=== PATIENT | male | born 1980 | race African-American/Black ===

== ENCOUNTER 2020-08-25 13:06 | Observation (INO) | payer SELFPAY ==
[2020-08-25] VITALS (8 sets, daily range): BP systolic 137–160; BP diastolic 94–105; PULSE 61–83; RESP 16–20; TEMP 36.1–36.9; O2SAT 97–100; BMI 26.4; BMI 27.9
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
--- NOTE | ~2020-08-25 | CT_ITS ---
EXAMINATION: CT brain wo con EXAM DATE: 08/25/2020 14:04 INDICATION: Syncope. Dizziness. TECHNIQUE: Spiral CT of the head was performed without contrast. Axial, coronal and sagittal images were reviewed. The dose-length product (DLP) for this examination was 605.33 mGy-cm. The exposure w as tailored according to patient size, and iterative reconstruction (ASIR) was used as additional dos e reduction technique. There is no prior study for comparison. FINDINGS: There is no acute intraparenchymal hemorrhage. No evidence of intraparenchymal brain mass lesion. No evidence of acute infarction. There is no mass effect or midline shift. The ventricles are normal in size. There are no extra-axial collections. There are no acute calvarial fractures. T he orbits are unremarkable. Soft tissue is unremarkable. The visualized sinuses and mastoid air deandre ls are well aerated. IMPRESSION: 1. No acute intracranial findings. Reviewed, dictated and finalized at location B.
--- NOTE | ~2020-08-25 | US_ITS ---
EXAMINATION: US carotid duplex BI DATE: 08/26/2020 09:20 INDICATION: Syncope. TECHNIQUE: Grayscale, color Doppler, and pulsed Doppler images of the cervical carotid arteries were obtained. The degree of vessel stenosis is placed in one of the following categories: normal, <50%, 5 0-69%, >=70% but less than near-occlusion, near-occlusion, or total occlusion. Note that percent sten osis relative to normal distal artery lumen diameter is indirectly measured from velocity measurement s as described by Don, et al. Radiology 2003; 229:340-346. COMPARISON: None. FINDINGS: RIGHT: The right common carotid artery (CCA) peak systolic velocity (PSV) is 106 cm/s. The right internal ca rotid artery (ICA) PSV is 63 cm/s. The right ICA end-diastolic velocity (EDV) is 30 cm/s. The right I CA/CCA PSV ratio is 0.6. Grayscale and color Doppler images yield an estimate of <50% diameter reduct ion from plaque in the ICA. There is antegrade flow in the right vertebral artery. LEFT: The left CCA PSV is 98 cm/s. The left ICA PSV is 82 cm/s. The left ICA EDV is 40 cm/s. The left ICA/C CA PSV ratio is 0.8. Grayscale and color Doppler images yield an estimate of <50% diameter reduction from plaque in the ICA. There is antegrade flow in the left vertebral artery. IMPRESSION: 1. <50% stenosis in the right internal carotid artery. 2. <50% stenosis in the left internal carotid artery. Reviewed, dictated and finalized at location A.
--- NOTE | 2020-08-25 13:45 | ECG_ITS ---
Measurements Intervals [place] Rate: 62 P: 54 MA: 136 QRS: 51 QRSD: 94 T: 40 QT: 406 QTc: 413 Interpretive Statements SINUS RHYTHM BASELINE ARTIFACT- II, III, AVR, AVF, V2-V6 NORMAL ECG Electronically Signed On 08-25-2020 15:39:27 CDT by Shimon Seo D.O.
[2020-08-25 14:01] LABS: Basophils Absolute Auto 0.1 K/mm3 (0.0-0.1); Basophils Percent Auto 0.5 % (0.2-1.2); Eosinophils Absolute Auto 0.1 K/mm3 (0-0.3); Hematocrit 49.1 % (42.0-52.0); Immature Granulocyte Absolute 0.05 K/mm3 (0.00-0.031); Immature Granulocyte Percent A 0.4 % (0-0.5); Lymphocytes Absolute Auto 3.87 K/mm3 (0.9-3.2); Lymphocytes Percent Auto 32.1 % (18.3-44.2); Mean Corpuscular HGB Conc 32.6 g/dl (32-36); Mean Corpuscular Hemoglobin 30.5 pg (26-34); Mean Corpuscular Volume 93.5 fl (80-100); Mean Platelet Volume 9.3 fl (7.4-10.4); Monocytes Absolute Auto 0.9 K/mm3 (0.1-0.6); Monocytes Percent Auto 7.2 % (2.6-8.5); Neutrophils Absolute Auto 7.1 K/mm3 (1.3-6.7); Neutrophils Percent Auto 58.8 % (45.5-73.1); Platelet Count Result 254 k/mm3 (150-375); Red Blood Count 5.25 M/mm3 (4.6-6.20); Red Cell Distribution Width 14.6 % (11.5-14.5); White Blood Count 12.1 K/mm3 (4.5-10.0)
[2020-08-25 14:14] LABS: Anion Gap 9 mmol/L (8-16); Blood Urea Nitrogen 15 mg/dL (9-20); Calcium 10.1 mg/dL (8.4-10.2); Carbon Dioxide 27 mmol/L (22-30); Chloride 104 mmol/L (98-107); Estimated CRCL calculation 81 ml/min; Estimated Glomerular Filt Rate > 60; Glucose 99 mg/dL (75-110); Potassium 4.5 mmol/L (3.4-5.0); Sodium 140 mmol/L (137-145)
[2020-08-25 14:15] LABS: INR 0.9; Prothrombin Time 12.2 Seconds (11.1-14.7)
[2020-08-25 14:16] LABS: Partial Thromboplastin Time 32.8 SECONDS (22.3-36.8)
[2020-08-25 14:26] LABS: Troponin I < 0.012 ng/mL (0.000-0.034)
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
[2020-08-25 16:53] LABS: Troponin I < 0.012 ng/mL (0.000-0.034)
[2020-08-25 20:51] LABS: Troponin I < 0.012 ng/mL (0.000-0.034)
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
[2020-08-25] MEDS: THIAMINE HCL 200 MG/2 ML VIAL 100 MG IV PUSH (23:17)
[2020-08-25] MEDS: chlordiazePOXIDE (*CRX) 25 MG CAPSULE PO (23:17)
[2020-08-26] VITALS (7 sets, daily range): BP systolic 135–159; BP diastolic 76–99; PULSE 54–88; RESP 16; TEMP 36.1; O2SAT 98–100
[2020-08-26 00:48] LABS: Cholesterol 191 mg/dL (0-200); HDL Direct 37 mg/dL; Triglycerides 223 mg/dL (<150)
[2020-08-26 00:59] LABS: LDL Cholesterol Direct 92 mg/dL
[2020-08-26 05:54] LABS: Hematocrit 45.7 % (42.0-52.0); Mean Corpuscular HGB Conc 32.8 g/dl (32-36); Mean Corpuscular Hemoglobin 30.5 pg (26-34); Mean Corpuscular Volume 93.1 fl (80-100); Mean Platelet Volume 9.5 fl (7.4-10.4); Platelet Count Result 246 k/mm3 (150-375); Red Blood Count 4.91 M/mm3 (4.6-6.20); Red Cell Distribution Width 14.4 % (11.5-14.5); White Blood Count 11.4 K/mm3 (4.5-10.0)
[2020-08-26 06:07] LABS: Alanine Aminotransferase 22 U/L (4-50); Albumin Level 3.8 g/dL (3.5-5.1); Alkaline Phosphatase 59 U/L (38-126); Anion Gap 6 mmol/L (8-16); Aspartate Amino Transferase 26 U/L (17-59); Bilirubin,Total 0.2 mg/dL (0.2-1.3); Blood Urea Nitrogen 19 mg/dL (9-20); Calcium 9.1 mg/dL (8.4-10.2); Carbon Dioxide 24 mmol/L (22-30); Chloride 108 mmol/L (98-107); Estimated CRCL calculation 88 ml/min; Estimated Glomerular Filt Rate > 60; Glucose 108 mg/dL (75-110); Magnesium 1.8 mg/dL (1.6-2.3); Potassium 4.2 mmol/L (3.4-5.0); Sodium 138 mmol/L (137-145)
[2020-08-26] MEDS: THIAMINE HCL 100 MG TABLET PO (10:08)
[2020-08-26] MEDS: FOLIC ACID 1 MG TABLET PO (10:08)
[2020-08-26] MEDS: THERAPEUTIC MULTIVITAMINS/MINERALS TAB (*BKC) 1 TABLET PO (10:08)
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
--- NOTE | 2020-08-26 15:54 | PM.DS ---
DS: Admitting Diagnosis Admitting Diagnosis Admitting Diagnosis: pre-syncopal episodes DS: Discharge Diagnosis Discharge Diagnosis (1) Near syncope: Code(s): R55 - Syncope and collapse Status: Acute (2) Alcohol abuse: Code(s): F10.10 - Alcohol abuse, uncomplicated Status: Acute (3) Tobacco dependence: Code(s): F17.200 - Nicotine dependence, unspecified, uncomplicated Status: Acute (4) Pre-hypertension: Code(s): R03.0 - Elevated blood-pressure reading, without diagnosis of hypertension Status: Acute (5) Cannabis use with cannabis-induced disorder: Code(s): F12.99 - Cannabis use, unspecified with unspecified cannabis-induced disorder Status: Acute (6) Complicated grief: Code(s): F43.21 - Adjustment disorder with depressed mood Status: Acute DS: Summary Hospital Course Reason for hospitalization: presyncope Hospital Course: This 40-year-old gentleman who has not seen a primary physician for a while has been drinking about 7 shots of cognac daily. This began over the last few years when he lost 11 friends and family to cancer and other illnesses. He admits to anxiety and depressed mood and continue grieving over his lost Loved ones. 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 He is in a stable long-term relationship. He smokes cigarettes and sometimes uses cannabis to calm his nerves. He drinks red bull in the morning to help him focus while driving and also at night to help him stable weight so he can keep drinking. He starts drinking and between 5 and 8:00 p.m. every night when he gets off work and continues drinking until 11:00 p.m. to 12:00 a.m. when he goes to bed. With the presyncopal episodes he had a funny sensation in his chest. Not pain. Not palpitations. He had 2 brief episodes while in the hospital but his telemetry during the episodes showed sinus rhythm. Labs electrocardiogram echocardiogram and chest x-ray were unremarkable during hospitalization. triglycerides were slightly high at 223. Cholesterol was 191. LDL was 92. HDL was 37. At this point he wishes to seek help for his alcohol dependence. He also realizes that he needs counseling for his prolonged complicated grief. He wishes to go home today but will call [facility] on [place] and will consider in the meantime whether he wishes inpatient or outpatient treatment. Status at Discharge Functional status at discharge: independent ambulation Overall status at discharge: patient is back to baseline Time Spent with Patient Time attestation: Total time spent providing and/or coordinating discharge services: Time spent: Greater than 30 minutes Exam Narrative: Exam Narrative: HEENT: PERRL, sclerae nonicteric, pharyngeal mucosa pink and intact NECK: No JVD, adenopathy, or thyromegaly CHEST: Clear to auscultation. Normal effort. HEART: NL S1/S2, regular, no murmur ABDOMEN: BS+, soft, nontender, no mass, no bruits EXTREMITIES: No cyanosis, edema, or clubbing NEUROLOGIC: CN intact and symmetric to inspection. MUSCULOSKELETAL: Tone and strength symmetric. PSYCH: Alert. Oriented to person, place, and time. DS: Data Data Completed and Pending Labs on day of discharge: Labs from last 24 hours 08/26/20 08/26/20 08/25/20 05:22 05:22 20:17 WBC 11.4 H RBC 4.91 Hgb 15.0 Hct 45.7 MCV 93.1 MCH 30.5 MCHC 32.8 RDW 14.4 Plt Count 246 MPV 9.5 Sodium 138 Potassium 4.2 Chloride 108 H Carbon Dioxide 24 Anion Gap 6 L BUN 19 Creatinine 1.20 Estim Creat Clear Calc 88 Estimated GFR > 60 Glucose 108 Calcium 9.1 Magnesium 1.8 Total Bilirubin 0.2 AST 26 ALT 22 Alkaline Phosphatase 59 Troponin I Total Protein 7.0 Albumin 3.8 Triglycerides 223 H Cholesterol 191 LDL Cholesterol Direct 92 HDL Direct 37 08/25/20 08/25/20 20:17 16:10 WBC RBC
--- NOTE | 2020-08-26 21:57 | ECHO_ITS ---
Patient Info Name: [address] Young Age: 40 years : 1980 Gender: Male Ht: 76 in Wt: 229 lbs BSA: 2.37 m2 HR: 75 bpm Technical Quality: Good Exam Date: 08/26/2020 9:23 AM Exam Location: [facility] Pulmonary Patient Status: Outpatient Admit Date: 08/25/2020 Staff Ordering Physician: Maame Joyce PA-C Senior Talent Management Consultant: Matilda Gill RDCS Attending Provider: Malka Myles MD Referring Physician: Isiah HOFFMAN; Exam Type: CA echo doppler w bubble study Study Info Complete two-dimensional, color flow and Doppler transthoracic echocardiogram is performed with agitated saline. Contrast/Agitated Saline Contrast/Ag. Saline: Agitated Saline Amount: 8.00 ml Left Ventricle Left ventricular chamber dimension is normal. Left ventricular systolic function is normal, estimated at 60-65%. There is no increased left ventricular wall thickness. Left ventricular septal wall motion is normal. The left ventricular diastolic function is normal. Right Ventricle Right ventricular chamber dimension is normal. Right ventricular systolic function is normal. Left Atria Left atrial chamber dimension is normal. Right Atria Right atrial chamber dimension is normal. Aortic Valve The aortic valve is trileaflet. There is no aortic valve sclerosis. There is no aortic valve stenosis. There is no aortic valve regurgitation. Pulmonic Valve The pulmonic valve is normal. There is no pulmonic valve stenosis. There is no pulmonic regurgitation. Mitral Valve The mitral valve has normal leaflets. There is no mitral valve stenosis. There is no mitral valve regurgitation. Tricuspid Valve The tricuspid valve leaflets are normal. There is no significant tricuspid valve stenosis. There is no tricuspid valve regurgitation. Pericardium/Pleural The pericardium appears normal. There is no pericardial effusion. Inferior Vena Cava Normal inferior vena cava with >50% collapse upon inspiration consistent with normal right atrial pressure, 10 mmHg. Aorta The aortic root size at the sinus of Valsalva is normal. The prox ascending aorta size is normal. Left Ventricular Outflow Tract Name Value Normal LVOT 2D LVOT Diameter 2.4 cm LVOT Doppler LVOT Peak Gradient 3 mmHg LVOT Mean Gradient 1 mmHg LVOT VTI 17 cm LVOT VTI/AV VTI Ratio 0.6 LVOT Stroke Volume 82 ml LVOT CO 4.8 l/min LVOT CI 2.0 l/min/m2 Pulmonic Valve Name Value Normal PV Doppler PV Peak Gradient 6 mmHg Mitral Valve Name Value
== END 2020-08-26 18:10 | disposition home or self-care (01) ==
LOC: ANHED 16:35 → ANH3MED 17:58
PROVIDERS: Physician Assistant; Specialist; Admitting Provider Family Medicine; Emergency Provider Emergency Medicine; Visit Provider Internal Medicine
DX: R55 Syncope and collapse (principal); R03.0 Elevated blood-pressure reading, without diagnosis of hypertension; F10.10 Alcohol abuse, uncomplicated; F17.210 Nicotine dependence, cigarettes, uncomplicated; F12.99 Cannabis use, unspecified with unspecified cannabis-induced disorder; F43.21 Adjustment disorder with depressed mood
CPT/HCPCS: 36415; 70450; 71046; 80048; 80053; 80061; 83735; 84484; 85025; 85027; 85610; 85730; 93005; 93306; 93880; 96374; 96375; 99285; A9270; G0378; G0379; J3411

== ENCOUNTER 2021-03-14 01:07 | Day surgery (SDC) | payer OTHER, SELFPAY ==
[2021-03-07 13:06] VITALS: BMI 29.2
[2021-03-14 07:53] VITALS: BP 147/94; PULSE 84; RESP 16; TEMP 37.1; O2SAT 98
[2021-03-14] MEDS: LACTATED RINGERS 1,000 ML 150 ML IV CONT (08:02)
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
[2021-03-14 08:35] VITALS: BP 103/70; PULSE 91; RESP 16; O2SAT 91
[2021-03-14 08:45] VITALS: BP 116/76; PULSE 77; RESP 16; O2SAT 99
[2021-03-14 08:55] VITALS: BP 116/76; PULSE 77; RESP 16; O2SAT 99
== END 2021-03-14 09:27 | disposition home or self-care (01) ==
PROVIDERS: PCP Internal Medicine; Visit Provider Internal Medicine Gastroenterology
PROC: 0DJ08ZZ Inspection of Upper Intestinal Tract, Via Natural or Artificial Opening Endoscopic (ICD-10-PCS; CPT 43235; principal; 2021-03-14 09:00)
DX: K21.00 Gastro-esophageal reflux disease with esophagitis, without bleeding (principal); K44.9 Diaphragmatic hernia without obstruction or gangrene; K29.50 Unspecified chronic gastritis without bleeding; B96.81 Helicobacter pylori [H. pylori] as the cause of diseases classified elsewhere; F10.10 Alcohol abuse, uncomplicated; F17.210 Nicotine dependence, cigarettes, uncomplicated; F12.90 Cannabis use, unspecified, uncomplicated; Z79.82 Long term (current) use of aspirin
CPT/HCPCS: 43239; 88305; 88342; J2704; J7120

== ENCOUNTER 2021-05-23 01:02 | Day surgery (SDC) | payer OTHER, SELFPAY ==
[2021-05-18 09:43] VITALS: BMI 28.8
[2021-05-23 06:43] VITALS: BP 150/97; PULSE 79; RESP 20; TEMP 37; O2SAT 99
[2021-05-23] MEDS: LACTATED RINGERS 1,000 ML 150 ML IV CONT (06:53)
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
[2021-05-23 07:44] VITALS: BP 146/102; PULSE 85; RESP 21; O2SAT 98
[2021-05-23 07:54] VITALS: BP 143/101; PULSE 81; RESP 15; O2SAT 99
[2021-05-23 08:04] VITALS: BP 157/112; PULSE 73; RESP 17; O2SAT 99
--- NOTE | 2021-05-23 08:43 | SUR.PHASEII ---
DR CASTANO NOTIFIED OF A POSITIVE H-PYLORI
== END 2021-05-23 08:15 | disposition home or self-care (01) ==
PROVIDERS: PCP Internal Medicine; Visit Provider Internal Medicine Gastroenterology
PROC: 0DJ08ZZ Inspection of Upper Intestinal Tract, Via Natural or Artificial Opening Endoscopic (ICD-10-PCS; CPT 43235; principal; 2021-05-23 07:30)
DX: K29.70 Gastritis, unspecified, without bleeding (principal); B96.81 Helicobacter pylori [H. pylori] as the cause of diseases classified elsewhere; K21.00 Gastro-esophageal reflux disease with esophagitis, without bleeding; K44.9 Diaphragmatic hernia without obstruction or gangrene; F43.10 Post-traumatic stress disorder, unspecified; F17.210 Nicotine dependence, cigarettes, uncomplicated; F10.10 Alcohol abuse, uncomplicated
CPT/HCPCS: 43239; 87081; 88305; 88342; J7120

== ENCOUNTER 2021-11-15 12:19 | Outpatient (CLI) | payer OTHER, SELFPAY ==
--- NOTE | 2021-11-15 | ECG_ITS ---
Measurements Intervals [place] Rate: 66 P: 61 [place]: 124 QRS: 69 QRSD: 93 T: 59 QT: 382 QTc: 402 Interpretive Statements SINUS RHYTHM NORMAL ECG COMPARED TO ECG 08/25/2020 15:22:52 NO SIGNIFICANT CHANGES Electronically Signed On 11-15-2021 13:27:06 CDT by Shimon Seo D.O.
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
[2021-11-15 12:43] LABS: Basophils Absolute Auto 0.1 K/mm3 (0.0-0.1); Basophils Percent Auto 0.7 % (0.2-1.2); Eosinophils Absolute Auto 0.2 K/mm3 (0-0.3); Eosinophils Percent Auto 1.1 % (0-4.4); Hematocrit 43.4 % (42.0-52.0); Hemoglobin 14.1 g/dL (14.0-18.0); Immature Granulocyte Absolute 0.07 K/mm3 (0.00-0.031); Immature Granulocyte Percent A 0.5 % (0-0.5); Lymphocytes Absolute Auto 4.64 K/mm3 (0.9-3.2); Lymphocytes Percent Auto 30.2 % (18.3-44.2); Mean Corpuscular HGB Conc 32.5 g/dl (32-36); Mean Corpuscular Hemoglobin 30.8 pg (26-34); Mean Corpuscular Volume 94.8 fl (80-100); Mean Platelet Volume 9.3 fl (7.4-10.4); Monocytes Absolute Auto 1.1 K/mm3 (0.1-0.6); Monocytes Percent Auto 6.8 % (2.6-8.5); Neutrophils Absolute Auto 9.3 K/mm3 (1.3-6.7); Neutrophils Percent Auto 60.7 % (45.5-73.1); Platelet Count Result 233 k/mm3 (150-375); Red Blood Count 4.58 M/mm3 (4.6-6.20); Red Cell Distribution Width 14.6 % (11.5-14.5); White Blood Count 15.4 K/mm3 (4.5-10.0)
[2021-11-15 12:52] LABS: Alanine Aminotransferase 22 U/L (6-50); Albumin Level 4.5 g/dL (3.5-5.1); Alkaline Phosphatase 52 U/L (38-126); Anion Gap 12 mmol/L (8-16); Aspartate Amino Transferase 24 U/L (17-59); Bilirubin,Total 0.4 mg/dL (0.2-1.3); Blood Urea Nitrogen 14 mg/dL (9-20); Calcium 9.4 mg/dL (8.4-10.2); Carbon Dioxide 25 mmol/L (22-30); Chloride 103 mmol/L (98-107); Estimated Glomerular Filt Rate > 60; Glucose 96 mg/dL (65-110); Potassium 4.1 mmol/L (3.4-5.0); Sodium 140 mmol/L (137-145)
[2021-11-15 12:53] LABS: INR 0.9; Prothrombin Time 12.2 Seconds (11.1-14.7)
[2021-11-15 12:54] LABS: Partial Thromboplastin Time 31.8 SECONDS (22.3-36.8)
[2021-11-15 13:04] LABS: Troponin I 0.013 ng/mL (0.000-0.034)
[2021-11-15 13:25] LABS: Hepatitis B Surface Antigen Negative (Negative)
[2021-11-15 13:32] LABS: HIV 1/2 Ab P24 Ag Result Negative (Negative)
[2021-11-15 13:42] LABS: Hepatitis C Virus Antibody Negative (Negative)
[2021-11-16 07:22] LABS: Rapid Plasma Reagin Non-Reactive (NonReactive)
== END 2021-11-15 12:20 | disposition home or self-care (01) ==
LOC: ANHLAB 12:21
PROVIDERS: PCP Internal Medicine; Visit Provider Internal Medicine
DX: R07.9 Chest pain, unspecified (principal); K92.0 Hematemesis; K21.01 Gastro-esophageal reflux disease with esophagitis, with bleeding; Z20.9 Contact with and (suspected) exposure to unspecified communicable disease; K92.1 Melena
CPT/HCPCS: 36415; 71046; 80053; 84484; 85025; 85610; 85730; 86592; 86703; 86803; 87340; 93005; G0432

== ENCOUNTER 2022-03-11 14:41 | Outpatient (CLI) | payer OTHER, SELFPAY ==
[2022-03-11 15:02] LABS: Basophils Absolute Auto 0.1 K/mm3 (0.0-0.1); Basophils Percent Auto 0.6 % (0.2-1.2); Eosinophils Absolute Auto 0.1 K/mm3 (0-0.3); Hematocrit 46.4 % (42.0-52.0); Hemoglobin 15.4 g/dL (14.0-18.0); Immature Granulocyte Absolute 0.06 K/mm3 (0.00-0.031); Immature Granulocyte Percent A 0.5 % (0-0.5); Lymphocytes Absolute Auto 5.06 K/mm3 (0.9-3.2); Lymphocytes Percent Auto 39.8 % (18.3-44.2); Mean Corpuscular HGB Conc 33.2 g/dl (32-36); Mean Corpuscular Hemoglobin 30.6 pg (26-34); Mean Corpuscular Volume 92.2 fl (80-100); Mean Platelet Volume 9.2 fl (7.4-10.4); Monocytes Absolute Auto 0.8 K/mm3 (0.1-0.6); Monocytes Percent Auto 6.1 % (2.6-8.5); Neutrophils Absolute Auto 6.6 K/mm3 (1.3-6.7); Platelet Count Result 237 k/mm3 (150-375); Red Blood Count 5.03 M/mm3 (4.6-6.20); Red Cell Distribution Width 14.3 % (11.5-14.5); White Blood Count 12.7 K/mm3 (4.5-10.0)
[2022-03-11 15:16] LABS: Alanine Aminotransferase 36 U/L (6-50); Albumin Level 4.2 g/dL (3.5-5.1); Alkaline Phosphatase 67 U/L (38-126); Anion Gap 7 mmol/L (8-16); Aspartate Amino Transferase 32 U/L (17-59); Bilirubin,Total 0.6 mg/dL (0.2-1.3); Blood Urea Nitrogen 11 mg/dL (9-20); Carbon Dioxide 25 mmol/L (22-30); Chloride 108 mmol/L (98-107); Cholesterol 202 mg/dL (0-200); Estimated Glomerular Filt Rate > 60; Glucose 90 mg/dL (65-110); HDL Direct 50 mg/dL; Potassium 4.3 mmol/L (3.4-5.0); Sodium 140 mmol/L (137-145); Triglycerides 219 mg/dL (<150)
[2022-03-11 15:27] LABS: Hemoglobin A1C 5.7 % (<5.7); LDL Cholesterol Direct 94 mg/dL
[2022-03-11 16:05] LABS: Free T4 Free Thyroxine 0.85 ng/mL (0.78-2.19)
[2022-03-11 16:23] LABS: Vitamin D 25 Hydroxy < 12.8 ng/mL
[2022-03-11 17:46] LABS: Folic Acid 7.7 ng/mL (2.76->20)
== END 2022-03-11 14:42 | disposition home or self-care (01) ==
LOC: ANHLAB 14:46
PROVIDERS: PCP Internal Medicine; Visit Provider Nurse Practitioner Psychiatric/Mental Health
DX: K21.9 Gastro-esophageal reflux disease without esophagitis (principal); F32.3 Major depressive disorder, single episode, severe with psychotic features; F41.1 Generalized anxiety disorder; F10.10 Alcohol abuse, uncomplicated; F43.12 Post-traumatic stress disorder, chronic; F51.05 Insomnia due to other mental disorder
CPT/HCPCS: 36415; 80053; 80061; 82248; 82306; 82607; 82746; 82747; 83036; 84439; 84443; 85025